=== PATIENT | female | born 1970 | race Asian ===

== ENCOUNTER 2018-08-14 12:23 | Day surgery (SDC) | END 2018-08-14 17:10 | disposition home or self-care (01) ==

== ENCOUNTER 2018-09-05 09:59 | Day surgery (SDC) | payer OTHER ==
[~2018-09-05] VITALS: Ht 157.5 cm; Wt 69.4 kg
[~2018-09-05 09:59] MED LIST: AMLO-147 PO; ASPI81TA52 PO; ATOR40TA68 PO; BENA5TAB33 PO; METF500T24 PO; METO-319 PO
[2018-09-05 10:31] VITALS: Ht 157.5 cm; Wt 69.4 kg
--- NOTE | 2018-09-05 10:42 | PREAC ---
Date/Time of Note Date/Time of Note DATE: 09/05/18 TIME: 10:40 Anesthesia Eval and Record Evaluation Time Pre-Procedure Interview DATE: 09/05/18 TIME: 10:40 Age 48 Sex female NPO: 8 hrs Preoperative diagnosis screening Planned procedure colonoscopy Past Medical History Past Medical History: Includes Cardio: HTN, Dyslipidemia, [place] (2016), PTCA/Stent Endo: Diabetes Surgery & Anesthesia Issues No known issue Meds Anticoagulation: No Beta Nathan within 24 hr: No Reason Beta Nathan not given: Pt. not on B-Nathan Reported Medications Benazepril Hcl* (Benazepril Hcl*) 5 Mg Tablet, 5 MG PO DAILY, #30 TAB 08/14/18 Atorvastatin* (Atorvastatin*) 40 Mg Tablet, 40 MG PO QHS, #30 TAB 08/14/18 Metoprolol Succinate* (Toprol XL*) 50 Mg Tab.er.24h, 50 MG PO DAILY, #30 TAB 08/14/18 Amlodipine Besylate* (Amlodipine Besylate*) 10 Mg Tablet, 10 MG PO DAILY, #30 TAB 08/14/18 Aspirin (Low Dose Aspirin) 81 Mg Tablet.dr, 81 MG PO DAILY, #30 TAB 08/14/18 Metformin Hcl* (Metformin Hcl*) 500 Mg Tablet, 500 MG PO WITH BREAKFAST DINNE, #60 TAB 08/14/18 Meds reviewed: Yes Allergies Coded Allergies: No Known Allergy (Unverified , 09/05/18) Allergies Reviewed: Yes Labs/Studies Labs Reviewed: Reviewed by anesthesiologist test: Negative Studies: ECG (sr), CXR (n/a) Pre-procedure Exam Airway: Adequate mouth opening Mallampati: Mallampati I Teeth: Normal Lung: Normal Heart: Normal ASA Physical Status ASA physical status: 2 Emergency: None Planned Anesthetic General/MAC: MAC Planned Pain Management Local by surgeon Pre-operative Attestations Prior to commencing anesthesia and surgery, the patient was re-evaluated, there was verification of: *The patient's identity *The results of appropriate recent lab work and preoperative vital signs *The above evaluation not changing prior to induction *Anesthetic plan, risk benefits, alternative and complications discussed with patient/family; questions answered; patient/family understands, accepts and wishes to proceed. GRECIA TURNER MD Sep 05, 2018 10:42
[2018-09-05] MEDS ORDERED: PROPOFOL 20 ML ONE (10:49)
[2018-09-05] MEDS ORDERED: FENTAnyl 50 MCG/ML VIAL ONE (10:49)
[2018-09-05 10:50] VITALS: BP 157/85; PULSE 68; RESP 10
--- NOTE | 2018-09-05 11:34 | PAC ---
Date/Time of Note Date/Time of Note DATE: 09/05/18 TIME: 11:33 Post-Anesthesia Notes Post-Anesthesia Note Last documented vital signs Vital Signs Date Temp Pulse Resp B/P (MAP) Pulse Ox O2 O2 Flow FiO2 Time Delivery Rate 09/05/18 68 10 157/85 99 Room Air 10:50 (109) Activity: WNL Respiratory function: WNL Cardiovascular function: WNL Mental status: Baseline Pain reasonably controlled: Yes Hydration appropriate: Yes Nausea/Vomiting absent: No GRECIA TURNER MD Sep 05, 2018 11:34
[2018-09-05 11:52] VITALS: BP 123/69; RESP 14
== END 2018-09-05 12:30 | disposition home or self-care (01) ==
LOC: GIL 09:59
PROVIDERS: ATTEND Internal Medicine Gastroenterology
DX: Z12.11 Encounter for screening for malignant neoplasm of colon (principal); D12.4 Benign neoplasm of descending colon; E78.5 Hyperlipidemia, unspecified; E11.9 Type 2 diabetes mellitus without complications; I10 Essential (primary) hypertension
CPT/HCPCS: 45380; 82962; 84703; 88305; J3010; Z7610